=== PATIENT | male | born 1960 | race Caucasian/White ===

== ENCOUNTER → 2022-01-05 | Outpatient (CLI) | payer OTHER | LOC: LAB 11:26 → RAD 11:26 → EDSTATUS 11:40 | DX: M25.561 Pain in right knee (principal) ==

== ENCOUNTER → 2022-03-04 | Outpatient (CLI) | payer OTHER | LOC: RAD 09:44 | DX: M17.11 Unilateral primary osteoarthritis, right knee (principal) ==

== ENCOUNTER → 2022-06-25 | Outpatient (CLI) | payer OTHER | LOC: RAD 09:36 | DX: Z01.818 Encounter for other preprocedural examination (principal) ==

== ENCOUNTER → 2022-11-17 | Outpatient (CLI) | payer OTHER | LOC: RAD 10:29 | DX: Z01.89 Encounter for other specified special examinations (principal) ==

== ENCOUNTER → 2024-07-28 | Outpatient (CLI) | payer OTHER | LOC: RAD 09:17 | DX: R22.41 Localized swelling, mass and lump, right lower limb (principal); Z96.652 Presence of left artificial knee joint ==